=== PATIENT | male | born 1975 | race African-American/Black ===

== ENCOUNTER → 2017-02-03 | Outpatient (CLI) | payer BC, OTHER ==
[~2017-02-03] MED LIST: HYDROCHLOROTHIA25 M1 PO; ISENTRESS400 MG PO; KEPPRA 500 MG500 M1 PO; KEPPRA750 MG PO; [UNRECOGNIZED DRUG - OTHER] PO
== END ==
LOC: HYPER 07:01
DX: S51.001A Unspecified open wound of right elbow, initial encounter (principal); S51.002A Unspecified open wound of left elbow, initial encounter; S51.802A Unspecified open wound of left forearm, initial encounter; S51.801A Unspecified open wound of right forearm, initial encounter; B18.2 Chronic viral hepatitis C; R73.03 Prediabetes; X58.XXXA Exposure to other specified factors, initial encounter; Y93.89 Activity, other specified; Y92.89 Other specified places as the place of occurrence of the external cause; Y99.8 Other external cause status

== ENCOUNTER → 2017-02-08 | Outpatient (CLI) | payer BC, OTHER | LOC: HYPER 07:00 | DX: S51.001D Unspecified open wound of right elbow, subsequent encounter (principal); S51.802D Unspecified open wound of left forearm, subsequent encounter; S51.801D Unspecified open wound of right forearm, subsequent encounter; B18.2 Chronic viral hepatitis C; X58.XXXD Exposure to other specified factors, subsequent encounter ==

== ENCOUNTER → 2017-02-15 | Outpatient (CLI) | payer BC, OTHER | LOC: HYPER 07:11 | DX: S51.802D Unspecified open wound of left forearm, subsequent encounter (principal); S51.801D Unspecified open wound of right forearm, subsequent encounter; S51.001D Unspecified open wound of right elbow, subsequent encounter; S51.002D Unspecified open wound of left elbow, subsequent encounter; B18.2 Chronic viral hepatitis C; X58.XXXD Exposure to other specified factors, subsequent encounter ==

== ENCOUNTER → 2017-02-22 | Outpatient (CLI) | payer BC, OTHER | LOC: HYPER 07:19 | DX: S51.802D Unspecified open wound of left forearm, subsequent encounter (principal); S51.801D Unspecified open wound of right forearm, subsequent encounter; S51.001D Unspecified open wound of right elbow, subsequent encounter; S51.002D Unspecified open wound of left elbow, subsequent encounter; B18.2 Chronic viral hepatitis C; X58.XXXD Exposure to other specified factors, subsequent encounter ==

== ENCOUNTER → 2017-03-01 | Outpatient (CLI) | payer BC, OTHER | LOC: HYPER 06:50 | DX: S51.802D Unspecified open wound of left forearm, subsequent encounter (principal); S51.001D Unspecified open wound of right elbow, subsequent encounter; S51.002D Unspecified open wound of left elbow, subsequent encounter; R73.03 Prediabetes; B18.2 Chronic viral hepatitis C; X58.XXXD Exposure to other specified factors, subsequent encounter ==

== ENCOUNTER → 2017-03-08 | Outpatient (CLI) | payer BC, OTHER | LOC: HYPER 03-07 16:47 | DX: S51.802D Unspecified open wound of left forearm, subsequent encounter (principal); S51.801D Unspecified open wound of right forearm, subsequent encounter; B18.2 Chronic viral hepatitis C; R73.03 Prediabetes; X58.XXXD Exposure to other specified factors, subsequent encounter ==

== ENCOUNTER → 2017-03-22 | Outpatient (CLI) | payer BC, OTHER | LOC: HYPER 07:05 | DX: S51.002D Unspecified open wound of left elbow, subsequent encounter (principal); B18.2 Chronic viral hepatitis C; R73.03 Prediabetes; X58.XXXD Exposure to other specified factors, subsequent encounter ==